=== PATIENT | female | born 1985 | race Two or more races ===

== ENCOUNTER 2022-09-20 10:11 | Emergency (ER) | payer OTHER ==
[~2022-09-20] VITALS: Ht 157.5 cm; Wt 109.0 kg
[2022-09-20 11:02] LABS: Basophils # (auto) 0 10 ^3/uL (0-0.2); Basophils % (auto) 0.6 % (0.0-2.0); Eosinophils # (auto) 0.1 10 ^3/uL (0-0.8); Eosinophils % (auto) 1.7 % (0.0-7.0); Hematocrit 36.8 % (36.0-46.0); Hemoglobin 12.2 g/dL (12.2-16.2); Lymphocytes # (auto) 2.4 10 ^3/uL (0.4-5.4); Lymphocytes % (auto) 29.8 % (10.0-50.0); Mean Corpuscular Hemoglobin 29.5 pg (28.0-32.0); Mean Corpuscular Hgb Conc. 33.1 g/dL (32.0-36.0); Mean Corpuscular Volume 88.9 fL (80.0-100.0); Monocytes # (auto) 0.6 10 ^3/uL (0-1.3); Monocytes % (auto) 7.2 % (0.0-12.0); Neutrophils % (auto) 60.7 % (37.0-80.0); Red Blood Cells 4.14 10^6/uL (4.0-5.20); Red Cell Distribution Width 13.1 % (11.8-14.3); White Blood Cell 8.2 10^3/uL (4.4-10.8)
[2022-09-20 11:35] LABS: INR 0.96 (0.9-1.15)
[2022-09-20 13:15] VITALS: BP 124/66
[2022-09-20 13:34] LABS: Urine Bacteria NONE SEEN /hpf (None Seen); Urine Blood 3+ /uL (Negative); Urine Mucus FEW (None Seen); Urine Specific Gravity 1.018 (1.001-1.035); Urine WBC 2 /hpf (0 - 5)
== END 2022-09-20 13:22 | disposition home or self-care (01) ==
LOC: ER 10:19
DX: O03.9 Complete or unspecified spontaneous abortion without complication (principal); Z90.49 Acquired absence of other specified parts of digestive tract
CPT/HCPCS: 36415; 76801; 76817; 81001; 84702; 85025; 85610; 85730

== ENCOUNTER 2022-09-25 19:26 | Emergency (ER) | payer OTHER ==
[~2022-09-25] VITALS: Ht 157.5 cm; Wt 111.3 kg
[2022-09-25] MEDS ORDERED: ONDANSETRON HCL 4 MG/2 ML VIAL ONE ×2 (19:32→21:33)
[2022-09-25] MEDS ORDERED: MORPHINE SULFATE 4 MG/ML SYR/VIAL ONE (19:32)
[2022-09-25] MEDS ORDERED: SODIUM CHLORIDE 0.9% 1,000 ML IV ONE (20:15)
[2022-09-25] MEDS ORDERED: ONDANSETRON HCL 4 MG/2 ML VIAL IV ONE (20:15)
[2022-09-25] MEDS ORDERED: MORPHINE SULFATE 4 MG/ML SYR/VIAL IV ONE (20:15)
[2022-09-25 20:28] LABS: Basophils # (auto) 0 10 ^3/uL (0-0.2); Basophils % (auto) 0.5 % (0.0-2.0); Eosinophils # (auto) 0.2 10 ^3/uL (0-0.8); Eosinophils % (auto) 1.8 % (0.0-7.0); Hematocrit 30.7 % (36.0-46.0); Hemoglobin 10.5 g/dL (12.2-16.2); Lymphocytes # (auto) 3.2 10 ^3/uL (0.4-5.4); Mean Corpuscular Hemoglobin 30.4 pg (28.0-32.0); Mean Corpuscular Hgb Conc. 34.3 g/dL (32.0-36.0); Mean Corpuscular Volume 88.6 fL (80.0-100.0); Monocytes # (auto) 0.6 10 ^3/uL (0-1.3); Monocytes % (auto) 7.1 % (0.0-12.0); Neutrophils % (auto) 55.6 % (37.0-80.0); Nucleated Red Blood Cells % 0.3 %; Red Blood Cells 3.46 10^6/uL (4.0-5.20); Red Cell Distribution Width 13.4 % (11.8-14.3)
[2022-09-25] MEDS ORDERED: NS/OXYTOCIN 20UNITS 1,000 ML IV ONE (20:30)
[2022-09-25 20:41] LABS: Albumin 3.2 g/dL (3.4-5.0); Calcium 8.8 mg/dL (8.5-10.1); Potassium 3.8 mmol/L (3.5-5.1)
[2022-09-25 20:43] LABS: BUN/Creatinine Ratio 16.2
[2022-09-25 20:44] LABS: INR 0.95 (0.9-1.15); Partial Thromboplastin Time 24.1 sec (24.6-33.4)
[2022-09-25 20:50] LABS: Bilirubin, Total 0.2 mg/dL (0.2-1.0); Total Protein 6.3 g/dL (6.4-8.2)
[2022-09-25] MEDS ORDERED: ONDA-144 PO (21:30)
[2022-09-25] MEDS ORDERED: FER325T PO (21:30)
[2022-09-25] MEDS ORDERED: HYDROmorphone HCL 2 MG/ML VL/or syr IV PRN ×2 (21:30)
[2022-09-25] MEDS ORDERED: IBUP800T27 PO (21:30)
[2022-09-25] MEDS ORDERED: MORPHINE SULFATE INJ 2 MG/ml SYRG IV PRN (21:30)
[2022-09-25] MEDS ORDERED: METOCLOPRAMIDE HCL 5MG/ml INJ 2ml VIAL IV PRN (21:30)
[2022-09-25] MEDS ORDERED: PROPOFOL 10 MG/ML 20 ML IV ONE (21:33)
[2022-09-25] MEDS ORDERED: MIDAZOLAM HCL 2MG/2ML 2ml VIAL (1mg/ml) ONE (21:33)
[2022-09-25] MEDS ORDERED: fentaNYL CITRATE 100 MCG/2 ML VL ONE (21:33)
[2022-09-25] MEDS ORDERED: MEPERIDINE HCL (50 MG/ML) 1 ML VIAL ONE (21:33)
[2022-09-25] MEDS ORDERED: SODIUM CHLORIDE LOCK 10 ML ONE (21:33)
[2022-09-25 21:34] VITALS: BP 87/46
[2022-09-25] MEDS ORDERED: RHO (D) IMMUNE GLOBULIN 300 MCG INJ IM PRN (22:00)
[2022-09-25] MEDS ORDERED: ONDANSETRON HCL 4 MG/2 ML VIAL IV PRN (22:00)
[2022-09-25] MEDS ORDERED: ceFAZolin 1GM/50ML 50 ML IV ONE (22:23)
[2022-09-25 23:09] LABS: Basophils # (auto) 0 10 ^3/uL (0-0.2); Basophils % (auto) 0.2 % (0.0-2.0); Eosinophils # (auto) 0 10 ^3/uL (0-0.8); Eosinophils % (auto) 0.2 % (0.0-7.0); Hematocrit 28.1 % (36.0-46.0); Hemoglobin 9.3 g/dL (12.2-16.2); Lymphocytes # (auto) 1.7 10 ^3/uL (0.4-5.4); Mean Corpuscular Hemoglobin 29.6 pg (28.0-32.0); Mean Corpuscular Volume 89.9 fL (80.0-100.0); Monocytes # (auto) 0.6 10 ^3/uL (0-1.3); Monocytes % (auto) 4.5 % (0.0-12.0); Neutrophils # (auto) 10.5 10 ^3/uL (1.6-8.6); Neutrophils % (auto) 82.1 % (37.0-80.0); Red Blood Cells 3.12 10^6/uL (4.0-5.20); Red Cell Distribution Width 13.3 % (11.8-14.3); White Blood Cell 12.7 10^3/uL (4.4-10.8)
[2022-09-25 23:40] VITALS: BP 98/54
== END 2022-09-25 21:37 | disposition home or self-care (01) ==
LOC: ER 19:26
DX: N93.9 Abnormal uterine and vaginal bleeding, unspecified (principal); R10.2 Pelvic and perineal pain; Z79.899 Other long term (current) drug therapy; Z90.49 Acquired absence of other specified parts of digestive tract; Z98.890 Other specified postprocedural states; Z20.822 Contact with and (suspected) exposure to COVID-19
CPT/HCPCS: 36415; 36430; 76801; 80053; 84702; 85025; 85610; 85730; 86850; 86900; 86901; 86920; 87426; 88305; 96361; 96365; 96375; 99285; J0690; J2175; J2250; J2270; J2405; J2704; J3010; P9016

== ENCOUNTER 2022-10-03 13:23 | Emergency (ER) | payer BC, OTHER ==
[~2022-10-03] VITALS: Ht 157.5 cm; Wt 125.0 kg
[~2022-10-03 13:23] MED LIST: FER325T PO; IBUP800T27 PO; ONDA-144 PO
[2022-10-03] MEDS ORDERED: SODIUM CHLORIDE 0.9% 1,000 ML IVB ONE (13:45)
[2022-10-03 14:06] LABS: Basophils # (auto) 0 10 ^3/uL (0-0.2); Basophils % (auto) 0.5 % (0.0-2.0); Eosinophils # (auto) 0.2 10 ^3/uL (0-0.8); Eosinophils % (auto) 1.8 % (0.0-7.0); Hemoglobin 10.1 g/dL (12.2-16.2); Lymphocytes # (auto) 2.1 10 ^3/uL (0.4-5.4); Lymphocytes % (auto) 24.5 % (10.0-50.0); Mean Corpuscular Hemoglobin 31.7 pg (28.0-32.0); Mean Corpuscular Hgb Conc. 34.7 g/dL (32.0-36.0); Mean Corpuscular Volume 91.3 fL (80.0-100.0); Monocytes # (auto) 0.6 10 ^3/uL (0-1.3); Monocytes % (auto) 6.8 % (0.0-12.0); Neutrophils # (auto) 5.8 10 ^3/uL (1.6-8.6); Neutrophils % (auto) 66.4 % (37.0-80.0); Red Blood Cells 3.18 10^6/uL (4.0-5.20); White Blood Cell 8.7 10^3/uL (4.4-10.8)
[2022-10-03 14:14] LABS: Calcium 8.6 mg/dL (8.5-10.1)
[2022-10-03 14:20] LABS: Albumin 3.7 g/dL (3.4-5.0); BUN/Creatinine Ratio 19.7; Bilirubin, Total 0.2 mg/dL (0.2-1.0); Magnesium 2.2 mg/dL (1.6-2.6); Total Protein 6.8 g/dL (6.4-8.2)
[2022-10-03 15:04] LABS: Urine Bacteria NONE SEEN /hpf (None Seen); Urine Blood Negative /uL (Negative); Urine WBC 3 /hpf (0 - 5)
[2022-10-03 16:51] VITALS: BP 126/82
== END 2022-10-03 17:15 | disposition home or self-care (01) ==
LOC: ER 13:23
DX: R07.89 Other chest pain (principal); Z90.49 Acquired absence of other specified parts of digestive tract; Z98.890 Other specified postprocedural states
CPT/HCPCS: 36415; 70450; 71045; 80053; 81001; 83735; 84484; 85025; 93005; 96360; 99285; J7030